=== PATIENT | male | born 1940 ===

== ENCOUNTER 2017-11-15 19:09 | Emergency (ER) | payer OTHER ==
[~2017-11-15] VITALS: Ht 170.2 cm; Wt 68.0 kg
[~2017-11-15 19:09] MED LIST: MULTIVITAMINAS; TUSSIONEX PENNKI5 ML PO; [UNRECOGNIZED DRUG - MIXTURE]; [UNRECOGNIZED DRUG - OTHER]; [UNRECOGNIZED DRUG - OTHER]
== END 2017-11-15 23:10 | disposition home or self-care (01) ==
LOC: ER 19:09
DX: S00.33XA Contusion of nose, initial encounter (principal); S00.83XA Contusion of other part of head, initial encounter; Y04.2XXA Assault by strike against or bumped into by another person, initial encounter; Y93.89 Activity, other specified; Y92.524 Gas station as the place of occurrence of the external cause; Y99.8 Other external cause status

== ENCOUNTER 2021-10-13 03:07 | Emergency (ER) | payer OTHER ==
[~2021-10-13] VITALS: Ht 170.2 cm; Wt 68.0 kg
[2021-10-13] MEDS ORDERED: NAPROXEN500 MG PO (05:48)
[2021-10-13] MEDS ORDERED: MEDROLPACK PO (05:48)
[2021-10-13] MEDS ORDERED: ATARAX25 MG PO (05:48)
[2021-10-13] MEDS ORDERED: BACTRIM DS TAB1 EACH PO (05:48)
[2021-10-13] MEDS ORDERED: ZOVIRAX800 MG PO (06:03)
== END 2021-10-13 06:18 | disposition home or self-care (01) ==
LOC: ER 03:07
DX: S20.429A Blister (nonthermal) of unspecified back wall of thorax, initial encounter (principal); S40.821A Blister (nonthermal) of right upper arm, initial encounter; A03.9 Shigellosis, unspecified

== ENCOUNTER 2022-07-31 19:17 | Emergency (ER) | payer OTHER ==
[~2022-07-31] VITALS: Ht 170.2 cm; Wt 67.1 kg
[~2022-07-31 19:17] MED LIST changes: +ACETAMINOPHEN650 M2; +ATARAX25 MG PO; +BACTRIM DS TAB1 EACH PO; +MEDROLPACK PO; +NAPROXEN500 MG PO; +ZOVIRAX800 MG PO
== END 2022-07-31 22:12 | disposition home or self-care (01) ==
LOC: ER 19:17
DX: S09.90XA Unspecified injury of head, initial encounter (principal); W20.8XXA Other cause of strike by thrown, projected or falling object, initial encounter; Y93.9 Activity, unspecified; Y92.9 Unspecified place or not applicable; Y99.9 Unspecified external cause status

== ENCOUNTER 2024-08-12 14:34 | Outpatient (CLI) | payer OTHER | END 2024-08-12 14:40 | disposition home or self-care (01) | LOC: MRI 14:34 | PROVIDERS: ATTEND Internal Medicine | DX: S80.911A Unspecified superficial injury of right knee, initial encounter (principal); G44.309 Post-traumatic headache, unspecified, not intractable | CPT/HCPCS: 73721 ==